=== PATIENT | male | born 1970 | race Caucasian/White ===

== ENCOUNTER 2021-04-01 21:31 | Emergency (ER) | payer BC ==
[2021-04-01 21:44] VITALS: BP 170/95; PULSE 66; TEMP 97.5; BMI 36.6
[2021-04-01] MEDS ORDERED: SODIUM CHLORIDE 0.9% 500 ML INFUS.BAG IV ONE (22:37)
[2021-04-01] MEDS ORDERED: ACETAMINOPHEN 1000 MG/100 ML VIAL (NON FORMULARY) IVPB ONE (22:37)
[2021-04-01] MEDS ORDERED: METOCLOPRAMIDE HCL INJECTION 10 MG/2 ML VIAL IVPUSH ONE (22:37)
[2021-04-01] MEDS ORDERED: METOCLOPRAMIDE HCL INJECTION 10 MG/2 ML VIAL ONE (23:08)
[2021-04-01] MEDS ORDERED: ACETAMINOPHEN INJECTION 100 ML IVPB ONE (23:09)
[2021-04-01 23:42] LABS: BASO % 0.5 % (0-2.0); EOS % 0.3 % (0-4.5); HEMATOCRIT 45.8 % (35.4-49); HEMOGLOBIN 15.4 GM/dL (11.7-16.9); LYMPH % 11.3 % (8-40); MCH 27.7 pg (25.7-33.7); MCHC 33.6 g/dl (32.0-35.9); MEAN CELL VOLUME 82.5 fl (80-96); MEAN PLT VOLUME 10.1 fl (7.5-11.1); MONO % 4.2 % (3.8-10.2); NEUT % 83.7 % (42.8-82.8); PLATELET COUNT 189 10^3/uL (134-434); RBC 5.55 M/mm3 (4.00-5.60); RDW 12.8 % (11.9-15.9); WHITE BLOOD COUNT 13.5 K/mm3 (4.0-10.0)
[2021-04-01 23:51] LABS: INR 0.94 (0.83-1.09); PROTHROMBIN TIME (PATIENT) 11.6 SEC (9.7-13.0)
[2021-04-01 23:54] LABS: ACTIVATED PTT 31.3 SECONDS (25.2-36.5)
[2021-04-02 00:11] LABS: ALBUMIN 3.9 g/dl (3.4-5.0); CALCIUM 9.2 mg/dL (8.5-10.1)
[2021-04-02 00:12] LABS: BLOOD UREA NITROGEN 13.8 mg/dL (7-18)
[2021-04-02 00:15] LABS: CREATININE 0.7 mg/dL (0.55-1.3)
[2021-04-02 00:16] LABS: BILIRUBIN,TOTAL 0.6 mg/dL (0.2-1); TOT PROT 8.1 g/dl (6.4-8.2)
[2021-04-02] MEDS ORDERED: diphenhydrAMINE HCL 25 MG CAPSULE (FP) PO ONE ×2 (00:17→00:24)
[2021-04-02] MEDS ORDERED: DEXAMETHASONE SOD PHOSPHATE 10 MG/1 ML VIAL IVPUSH ONE (00:17)
[2021-04-02] MEDS ORDERED: DEXAMETHASONE SOD PHOSPHATE 10 MG/1 ML VIAL ONE (00:24)
== END 2021-04-02 00:50 | disposition home or self-care (01) ==
LOC: JER 21:31
PROC: 3E033GC Introduction of Other Therapeutic Substance into Peripheral Vein, Percutaneous Approach (ICD-10-PCS; principal; 2021-04-01)
DX: R51.9 Headache, unspecified (principal)
CPT/HCPCS: 36415; 70450-TC; 80053; 85025; 85610; 85730; 86850; 86900; 86901; 99285-25; J0131; J1100

== ENCOUNTER 2023-09-13 13:12 | Emergency (ER) | payer BC ==
[2023-09-13 13:18] VITALS: RESP 18; TEMP 98.3; BMI 35.3
[2023-09-13 14:33] LABS: BASO % 1.2 % (0-2.0); EOS % 2.6 % (0-4.5); HEMATOCRIT 47.6 % (35.4-49); HEMOGLOBIN 15.7 GM/dL (11.7-16.9); MCH 27.5 pg (25.7-33.7); MEAN CELL VOLUME 83.3 fl (80-96); MEAN PLT VOLUME 9.8 fl (7.5-11.1); MONO % 9.1 % (3.8-10.2); NEUT % 60.1 % (42.8-82.8); PLATELET COUNT 221 10^3/uL (134-434); RBC 5.71 M/mm3 (4.00-5.60); WHITE BLOOD COUNT 8.7 K/mm3 (4.0-10.0)
[2023-09-13 14:38] LABS: INR 0.94 (0.83-1.09); PROTHROMBIN TIME (PATIENT) 10.9 SEC (9.7-13.0)
[2023-09-13 14:41] LABS: ACTIVATED PTT 32.8 SECONDS (25.2-36.5)
[2023-09-13 14:51] LABS: POTASSIUM 4.6 mmol/L (3.5-5.1)
[2023-09-13 14:53] LABS: BLOOD UREA NITROGEN 11.4 mg/dL (7-18); CALCIUM 9.2 mg/dL (8.5-10.1)
[2023-09-13 14:54] LABS: ALBUMIN 3.8 g/dl (3.4-5.0); MAGNESIUM 1.9 mg/dL (1.8-2.4)
[2023-09-13 14:57] LABS: CREATININE 1.1 mg/dL (0.55-1.3)
[2023-09-13 14:58] LABS: BILIRUBIN,TOTAL 0.3 mg/dL (0.2-1); TOT PROT 7.9 g/dl (6.4-8.2)
[2023-09-13 19:44] VITALS: BP 166/107; PULSE 70
== END 2023-09-13 20:55 | disposition home or self-care (01) ==
LOC: JER 13:12
DX: R07.9 Chest pain, unspecified (principal); R61 Generalized hyperhidrosis; H53.8 Other visual disturbances
CPT/HCPCS: 36415; 71046-TC-FY; 71275-TC; 74174-TC; 80053; 82550; 83735; 84484; 85025; 85610; 85730; 93005; 93010; 99291; Q9967

== ENCOUNTER 2024-01-21 03:58 | Day surgery (SDC) | payer BC ==
[2024-01-18 12:47] VITALS: BMI 35.2
[2024-01-21 08:31] VITALS: TEMP 97.8
[2024-01-21 08:55] VITALS: RESP 18
[2024-01-21 09:07] VITALS: BP 133/91; PULSE 76
== END 2024-01-21 09:05 | disposition home or self-care (01) ==
LOC: JASU-ENDO 03:58
PROVIDERS: ATTEND Internal Medicine Gastroenterology
PROC: 0DB78ZX Excision of Stomach, Pylorus, Via Natural or Artificial Opening Endoscopic, Diagnostic (ICD-10-PCS; 2024-01-21)
PROC: 0DB68ZX Excision of Stomach, Via Natural or Artificial Opening Endoscopic, Diagnostic (ICD-10-PCS; principal; 2024-01-21 08:00)
DX: K29.50 Unspecified chronic gastritis without bleeding (principal); B96.81 Helicobacter pylori [H. pylori] as the cause of diseases classified elsewhere
CPT/HCPCS: 88305-TC; 88341-TC; 88342-TC

== ENCOUNTER 2025-01-03 06:21 | Day surgery (SDC) | payer BC ==
[2025-01-02 12:35] VITALS: BMI 34.7
[2025-01-03] MEDS ORDERED: MIDAZOLAM HCL 2 MG/2 ML SINGLE DOSE VIAL ONE (08:53)
[2025-01-03 09:30] VITALS: TEMP 97.8
[2025-01-03 09:35] VITALS: RESP 16
[2025-01-03 10:12] VITALS: BP 115/75; PULSE 83
== END 2025-01-03 10:42 | disposition home or self-care (01) ==
LOC: JASU-ENDO 06:21
PROVIDERS: ATTEND Internal Medicine Gastroenterology
PROC: 0DBN8ZX Excision of Sigmoid Colon, Via Natural or Artificial Opening Endoscopic, Diagnostic (ICD-10-PCS; 2025-01-03)
PROC: 0DBM8ZX Excision of Descending Colon, Via Natural or Artificial Opening Endoscopic, Diagnostic (ICD-10-PCS; 2025-01-03)
PROC: 0DBK8ZX Excision of Ascending Colon, Via Natural or Artificial Opening Endoscopic, Diagnostic (ICD-10-PCS; principal; 2025-01-03 08:30)
DX: Z12.11 Encounter for screening for malignant neoplasm of colon (principal); D12.5 Benign neoplasm of sigmoid colon; D12.4 Benign neoplasm of descending colon; D12.2 Benign neoplasm of ascending colon; K64.8 Other hemorrhoids
CPT/HCPCS: 82962; 88305-TC